=== PATIENT | female | born 1940 | race Hispanic/Latino ===

== ENCOUNTER 2017-09-27 08:10 | Outpatient (CLI) | payer MEDICARE | END 2017-09-27 08:11 | disposition home or self-care (01) | LOC: BICMAMMO 08:10 | PROVIDERS: ATTEND Obstetrics & Gynecology | DX: Z12.31 Encounter for screening mammogram for malignant neoplasm of breast (principal) | CPT/HCPCS: 77063; 77067 ==

== ENCOUNTER 2018-01-17 09:33 | Outpatient (CLI) | payer MEDICARE ==
[2018-01-17 12:22] LABS: Bilirubin Negative (Negative); Blood, Urine Negative (Negative); Clarity CLEAR (Clear); Glucose, Urine (Dipstick) Negative (Negative); Leukocyte Negative (Negative); Nitrite Negative (Negative); Protein, Urine (Dipstick) Negative (Neg-Trace); Specific Gravity, Urine 1.021 (1.002-1.036); Urobilinogen 0.2 mg/dL (0.2-1.0); pH, Urine 5.5 (5.0-9.0)
[2018-01-17 12:26] LABS: Bacteria/HPF None Seen HPF (None Seen); Hyaline Casts/LPF 0-3 HYALINE CAST LPF (0-3 Hyaline); RBC/HPF 0-3 HPF (0-3); Squamous Epithelial 0-3 HPF (0-3); WBC/HPF 0-3 HPF (0-3)
--- NOTE | 2018-01-17 12:34 | RAD ---
TWO VIEWS CHEST: Comparison: 01-18-07 History: Pre-operative radiograph. FINDINGS: Two views of the chest shows a normal sized cardiomediastinal silhouette. There are calcified granulo fung projecting over the right lower lobe. No consolidation or pleural effusion are seen. Degenerativ e changes are seen in the spine. IMPRESSION: No evidence of acute cardiopulmonary disease. POS: [facility]
== END 2018-01-17 09:34 | disposition home or self-care (01) ==
LOC: LABBT 09:33
PROVIDERS: ATTEND Orthopaedic Surgery
DX: Z01.818 Encounter for other preprocedural examination (principal); M17.11 Unilateral primary osteoarthritis, right knee
CPT/HCPCS: 71046; 81001; 87081

== ENCOUNTER 2018-01-24 08:58 | Outpatient (CLI) | payer MEDICARE ==
[2018-01-24 09:35] LABS: #Eosinphils 0.3 thou/uL (0.0-0.7); #Monocytes 0.5 thou/uL (0.11-0.59); #Neutrophils 3.7 thou/uL (1.40-6.50); %Basophils 0.4 % (0.0-1.0); %Lymphocytes 30.6 % (21.0-51.0); %Monocytes 7.7 % (0.0-10.0); %Neutrophils 56.2 % (42.0-75.0); Mean Corpuscular HGB CONC 33.3 g/dL (32.0-36.0); Mean Corpuscular Volume 92.9 fl (81.0-99.0); Mean Platelet Volume 8.7 fL (7.4-10.4); Platelet Count 187 thou/uL (130-400); RBC Distribution Width 12.8 % (11.5-14.5); Red Blood Cell (RBC) Count 4.18 mill/uL (4.20-5.40); White Blood Cell (WBC) Count 6.6 thou/uL (4.8-10.8)
[2018-01-24 09:39] LABS: INR-International Normal Ratio 1.1; Prothrombin Time 13.9 SEC (12.0-14.7)
[2018-01-24 09:57] LABS: Anion Gap 13 mmol/L (10-20); BUN (Urea Nitrogen) 24 mg/dL (9.8-20.1); Calc. Creatinine Clearance 0 mL/min (70-130); Calcium 9.3 mg/dL (7.8-10.44); Carbon Dioxide 23 mmol/L (23-31); Chloride 107 mmol/L (98-107); Estimated GFR-MDRD 82; Glucose 192 mg/dL (83-110); Potassium 4.1 mmol/L (3.5-5.1); Sodium 139 mmol/L (136-145)
== END 2018-01-24 08:59 | disposition home or self-care (01) ==
LOC: LABBT 08:58
PROVIDERS: ATTEND Orthopaedic Surgery
DX: Z01.818 Encounter for other preprocedural examination (principal); M17.11 Unilateral primary osteoarthritis, right knee
CPT/HCPCS: 80048; 85025; 85610

== ENCOUNTER 2018-01-27 12:25 | Outpatient (CLI) | payer MEDICARE | END 2018-01-27 12:26 | disposition home or self-care (01) | LOC: LABBT 12:25 | PROVIDERS: ATTEND Orthopaedic Surgery | DX: Z01.818 Encounter for other preprocedural examination (principal); M17.11 Unilateral primary osteoarthritis, right knee | CPT/HCPCS: 86850; 86900; 86901; 93005 ==

== ENCOUNTER 2018-02-01 06:21 | Inpatient (IN) | payer MEDICARE ==
[2018-02-01] MEDS ORDERED: Vancomycin HCl 1.5 GM in Sodium Chloride 0.9% 250 ML 300 ML IVPB SCH (07:00)
[2018-02-01] MEDS ORDERED: CEFAZOLIN/Water 2 GM/20 ML SYRINGE ONE (07:11)
[2018-02-01] MEDS ORDERED: Sodium Chloride 0.9% 100 ML ONE (07:11)
[2018-02-01] MEDS ORDERED: Ondansetron HCl/PF 4 MG/2 ML Vial ONE ×2 (07:24→07:57)
[2018-02-01] MEDS ORDERED: PHENYLEPHRINE-NS 100 MCG/ML 10 ML SYRINGE ONE (07:24)
[2018-02-01] MEDS ORDERED: PROPOFOL 200 MG/20 ML VIAL ONE (07:24)
[2018-02-01] MEDS ORDERED: Dexamethasone 20 MG/5 ML VIAL ONE (07:24)
[2018-02-01] MEDS ORDERED: Midazolam HCl 2 mg/2 ml Vial ONE (07:29)
[2018-02-01] MEDS ORDERED: Fentanyl 100 MCG/2 ML VIAL ONE ×2 (07:29→10:03)
[2018-02-01] MEDS ORDERED: Ondansetron HCl/PF 4 MG/2 ML Vial IVP PRN ×3 (08:30→10:05)
[2018-02-01] MEDS ORDERED: HYDROcodone/Acetaminophen 10/325 mg Tablet PO PRN ×2 (08:30)
[2018-02-01] MEDS ORDERED: Zolpidem Tartrate 5 MG TAB PO PRN (08:30)
[2018-02-01] MEDS ORDERED: Promethazine HCl 25 MG/ML VIAL IM PRN ×3 (08:30→10:05)
[2018-02-01] MEDS ORDERED: Fentanyl 100 MCG/2 ML VIAL IV PRN (08:31)
[2018-02-01] MEDS ORDERED: Acetaminophen 325 MG TAB PO PRN (08:46)
[2018-02-01] MEDS ORDERED: diphenhydrAMINE 25 MG CAP PO PRN (08:46)
[2018-02-01] MEDS ORDERED: traMADol HCl 50 MG TAB PO PRN (08:46)
[2018-02-01] MEDS ORDERED: Tranexamic Acid 1,000 MG in Sodium Chloride 0.9% 100 ML IVPB SCH ×2 (09:00→11:15)
[2018-02-01] MEDS ORDERED: Promethazine HCl 25 MG/ML VIAL SLOW IVP PRN (10:05)
--- NOTE | 2018-02-01 11:08 | OP ---
DATE OF PROCEDURE: 02/01/2018 PRECONSULTATION DIAGNOSIS: Inability to place a catheter prior to a total knee replacement. POST-PROCEDURE DIAGNOSIS: Inability to place a catheter prior to a total knee replacement. PROCEDURE: Placement of a 14 [place]er coude. SURGEON: Roopa Rock M.D. ANESTHESIA: General. COMPLICATIONS: None. INDICATIONS FOR PROCEDURE: The patient is a 77-year-old female who was getting prepped for her knee replacement with the Orthopedic Team and the preparation they were unable to place a catheter. Multiple attempts had been made and I was consulted for this. The patient was already asleep and in supine position and frog legged. At this point, I examined her, noted her urethra was recessed, but otherwise palpable with a pendulous anterior fourchette that had to be elevated in order to fully expose the anatomy. With her legs held in lithotomy, a 14 [place]er coude was then easily placed under sterile conditions for clear urine. The patient tolerated the procedure well. The rest of the procedure will be dictated by the Orthopedic team. TAD
--- NOTE | 2018-02-01 11:11 | OP ---
PREOPERATIVE DIAGNOSIS: Degenerative joint disease, right knee. POSTOPERATIVE DIAGNOSIS: Degenerative joint disease, right knee. SURGEON: Brandon Leach M.D. OPTICAL MANUFACTURING TECHNICIAN: Triston Banks PA-C. BLOOD LOSS: Minimal. SPECIMEN: None. DRAINS: None. COMPLICATIONS: None. TOURNIQUET TIME: 46 minutes. INDICATIONS: 3 femur, 2 tibia, 11 mm CS X3 polyethylene and A29 patella all from the [employer] series. PROCEDURE IN DETAIL: After informed consent was obtained in the preoperative holding area. The christiana ent was taken to the operative suite where general anesthesia was induced. Once adequate level of ge neral anesthesia was obtained, the patient was positioned and a well-padded tourniquet was placed gucci und the right proximal thigh. The right lower extremity was then prepped and draped in the usual aarti rile fashion. Prior to exsanguination, a time out was called and all members of the surgical team ag yaniv upon site, surgeon, and patient. The extremity was then exsanguinated and the tourniquet was ra ised. A midline longitudinal incision was then made directly over the patella extending two fingerbr eadths above the superior pole of the patella and two fingerbreadths inferior to the inferior patella r pole of the patella. Deeper subcutaneous layers were dissected sharply and local bleeding was cont rolled with Bovie electrocautery. A quad tendon longitudinal split was then made sharply and a media n parapatellar arthrotomy was carried out both sharp and with Bovie electrocautery, carried down to o ne fingerbreadth medial to the tibial tubercle. The knee was then placed into flexion and the patell a was everted nicely, and a copious fat pad ectomy was performed allowing for greater exposure of the tibia. The computer-assisted distal femoral fiducial was then placed and pinned firmly, and the dis heladio femoral cutting guide was pinned firmly into place. The oscillating saw was then used to remove the appropriate amount of bone. The 4-in-1 cutting block was then placed on the distal femur and the oscillating saw was used to remove the appropriate amount of bone off of the anterior, posterior, an d chamfer cuts. After completion of bone cuts, the anterior cruciate ligament was resected sharply a nd the posterior cruciate ligament retractor was placed and the tibia was subluxed for better exposur e. Partial meniscectomies were carried out, and the tibial computer-assisted fiducial was pinned, an d the cutting guide was placed. Oscillating saw was then used to remove the bone with Hohmann retrac tors used to take care and protect the collateral ligaments. After the tibial resection was performe d, a laminar filler spreader was placed in between the freshened bone cuts. The knee placed at 90 degrees a nd further bilateral meniscectomies were carried out, and the curved osteotome and curettage was used to remove any excess bone spurs in the posterior compartment. The trial femoral component, tibial b aseplate were placed with the appropriate polyethylene trial insert with an appropriate polyethylene spacer and patellar button. The knee was taken through full range of motion with flexion and extensi on from 0-90 degrees and patellar broach squarely in the trochlea without any squinting or subluxatio n noted. The knee was also stable to varus and valgus stressing at 0, 15, 45, and 90 degrees of flex ion. The drawer was negative. All trial components were then removed and the keel punch was used to provide the appropriate defect in the tibia with a mallet. The freshened bone cuts were copiously ir rigated with pulsatile lavage of about 1-1/2 liters to remove all excess debris. The freshened bone cuts were then dried and with suction and lap sponge. The knee was placed in flexion and retractors were placed to provide access to all bone cuts. Tobramycin impregnated methyl methacrylate cement wa s then placed on the freshened bone cuts and implants which were malleted firmly into place. Curetta ge and [place] elevators were used to remove any excess bone cement. The knee was placed into full ext ension and the patellar button was placed under compression, and the cement was allowed to cure. Onc e completed, the components were again taken through full range of motion and copious irrigation of t he knee was carried out with another liter of normal saline. All components were inspected fully wit h full range of motion and varus and valgus stressing. There was no laxity noted and full extension w as observed clinically. Primary closure was accomplished with #2 interrupted Vicryl stitch of the ar throtomy defect. This was oversewn with a #2 running Quill barbed stitch. The gravitational platele t system was then injected into the arthrotomy prior to closure. The subcutaneous layer was then lina sed with a running 0 barbed Monocryl stitch and skin closure accomplished with a running subcuticular 3-0 Monocryl barbed Quill stitch and augmented with cement on the skin. Tourniquet was lowered. Go od spontaneous return of distal pulses was noted clinically and a sterile dressing was applied to the incision. The procedure was terminated without any complications. The patient was awakened in the operative suite and the tourniquet was removed, and the patient was taken to the recovery room in sta ble condition.
[2018-02-01] MEDS ORDERED: Promethazine HCl 25 MG/ML VIAL ONE (11:24)
--- NOTE | 2018-02-01 11:56 | RAD ---
TWO VIEWS RIGHT KNEE: HISTORY: Status post arthroplasty. COMPARISON: None. FINDINGS: Findings compatible with recent arthroplasty. No joint effusion. No fracture or malalignment. IMPRESSION: Post arthroplasty change. POS: [facility]
[2018-02-01] MEDS ORDERED: Dextrose 5% in Water 1,000 ML IV PRN (14:14)
[2018-02-01] MEDS ORDERED: Dextrose 50% Abboject 50 ML SYRINGE SLOW IVP PRN (14:14)
[2018-02-01] MEDS ORDERED: CEFAZOLIN/Water 2 GM/20 ML SYRINGE SLOW IVP SCH (15:00)
[2018-02-01] MEDS ORDERED: Ropivacaine 0.5% HCl/PF (150 MG/30 ML VIAL) ONE (15:27)
[2018-02-01] MEDS ORDERED: Ropivacaine 0.2% HCl/PF (40 MG/20 ML VIAL) ONE (15:27)
[2018-02-01] MEDS ORDERED: Bupivacaine 0.25% HCL 30 ML VIAL ONE (15:27)
[2018-02-01] MEDS: Aspirin 81 mg Enteric Coated Tablet PO SCH ×2 (16:10→21:10)
[2018-02-01 16:38] VITALS: BMI 48.2
--- NOTE | 2018-02-01 21:05 | HP ---
DATE OF SERVICE: 02/01/2018 HISTORY OF PRESENT ILLNESS: This is a 77-year-old [place] female, who is postop day #0 status post right total knee replacement by Dr. Leach this morning. The patient did very well during the surgery. A minor complication was with the difficulty of placing a Castellano catheter. Due to her prola pse bladder, a Coude was placed by Dr. Rock. The patient did well following this. At this time, s he has no complaints whatsoever. PAST MEDICAL HISTORY: Hypertension, hyperlipidemia, diabetes, obesity, polycystic ovarian syndrome, chronic low back pain, endometriosis, diverticulosis, allergic rhinitis, depression, and cataracts. PAST SURGICAL HISTORY: Include, 1. Colonoscopy. 2. Right medial and lateral meniscal repair in 2006. 3. Left medial meniscal repair in 09/2016 2. Cataract surgery in 02/2017. FAMILY HISTORY: Unremarkable. SOCIAL HISTORY: Patient is . She has 2 children, one boy and one daughter with multiple gran dchildren. She is a retired finance administrative receptionist. She does not smoke, does not drink. MEDICATIONS: Aspirin 81 mg q. day, metformin 500 two p.o. b.i.d., Losartan 50 p.o. q. day, Zoloft 25 p.o. q. day, Actos 15 mg q. day, glimepiride 2 mg b.i.d., and pravastatin 20 q. day. ALLERGIES: BACTRIM, BIAXIN, CLINDAMYCIN, SULFA, and TRAMADOL. REVIEW OF SYSTEMS: As above. PHYSICAL EXAMINATION: VITAL SIGNS: Stable, afebrile. HEENT: Clear. HEART: Regular rate and rhythm. LUNGS: Clear. ABDOMEN: Soft. EXTREMITIES: With no edema. LABORATORY DATA: H&H 13 and 38. Electrolytes normal. Creatinine 0.70, BUN 24, blood sugar 138. Li lynsey functions normal. ASSESSMENT: 1. Postop day #0, status post right total knee replacement by Dr. Leach. 2. Placement of a 14-[place] [address] Dr. Rock. 3. Hypertension. 4. Hyperlipidemia. 5. Diabetes. 6. Morbid obesity. 7. Polycystic ovarian syndrome. PLAN: 1. Accu-Chek and moderate sliding scale of regular insulin. 2. Resume losartan 50, Zoloft 50, and pravastatin 20 today. 3. Resume metformin 500 two b.i.d., Actos 15 q. day, and glimepiride 2 mg p.o. b.i.d. tomorrow. 4. We will continue to follow. 5. Routine postop physical therapy.
[2018-02-01] MEDS: Simvastatin 5 MG TAB PO SCH (21:10)
[2018-02-01] MEDS: Insulin Regular 300 UNITS/3 ML VIAL SC PRN (21:14)
[2018-02-01] MEDS: Zolpidem Tartrate 5 MG TAB PO PRN (22:34)
[2018-02-01] MEDS: Bupivacaine 0.5% 50 ML in Sodium Chloride 0.9% 50 ML NERVE BLCK SCH (23:52)
[2018-02-02] MEDS ORDERED: CEFAZOLIN/Water 2 GM/20 ML SYRINGE SLOW IVP SCH (04:00)
[2018-02-02] MEDS: Insulin Regular 300 UNITS/3 ML VIAL SC PRN ×2 (06:11→12:51)
--- NOTE | 2018-02-02 08:03 | PRG ---
DATE OF SERVICE: 02/02/2018 SUBJECTIVE: The patient is doing well this morning. Last night she had an episode of panic. She wa s unable to figure out her call buttons. She therefore had to yell for help. She was given some almita n medicines which helped her, however, it made her nauseated and she had some episodes of vomiting. This morning she is doing much better. She is now familiar with her bed controls. She does not comp roderick of any chest pain, shortness of breath, nausea or vomiting. OBJECTIVE: VITAL SIGNS: Temperature 98.2, pulse 73, respirations 18, pulse ox 99, blood pressure 115/68. HEART: Regular rate and rhythm. LUNGS: Clear. ABDOMEN: Soft. EXTREMITIES: With no edema. LABORATORY: Blood sugar 221, 276, 174. Hemogram pending this morning. ASSESSMENT: 1. Postop day #1, status post right total knee replacement, doing well. 2. Hypertension. 3. Hyperlipidemia. 4. Diabetes. 5. Morbid obesity. 6. PCOS. PLAN: 1. Resume patient's metformin, glyburide and Actos. 2. From an anxiety standpoint, the patient is doing well at this time. She is familiar with her bed controls. No evidence of cardiac issues, PE issues or other issues. We will continue to follow.
[2018-02-02] MEDS: Ferrous Gluconate 324 MG TAB PO SCH ×2 (08:16→18:32)
[2018-02-02] MEDS: Senokot S 8.6-50 MG TAB PO SCH ×2 (08:16→20:36)
[2018-02-02] MEDS: Losartan 25 MG TAB PO SCH (08:16)
[2018-02-02] MEDS: metFORMIN 500 MG TAB PO SCH ×2 (08:16→18:32)
[2018-02-02] MEDS: Multivitamin W/ Minerals 1 TAB PO SCH (08:17)
[2018-02-02] MEDS: Pioglitazone HCl 15 MG TAB PO SCH (08:17)
[2018-02-02] MEDS: Aspirin 81 mg Enteric Coated Tablet PO SCH ×2 (08:17→20:35)
[2018-02-02 08:39] LABS: Hemoglobin 11.9 g/dL (12.0-16.0); Mean Corpuscular HGB CONC 33.4 g/dL (32.0-36.0); Mean Corpuscular Volume 92.9 fl (81.0-99.0); Mean Platelet Volume 8.1 fL (7.4-10.4); Platelet Count 165 thou/uL (130-400); RBC Distribution Width 12.8 % (11.5-14.5); Red Blood Cell (RBC) Count 3.82 mill/uL (4.20-5.40); White Blood Cell (WBC) Count 11.5 thou/uL (4.8-10.8)
[2018-02-02] MEDS: Ketorolac Tromethamine 30 MG/ML VIAL IVP PRN ×2 (11:18→18:31)
[2018-02-02] MEDS: Bupivacaine 0.5% 50 ML in Sodium Chloride 0.9% 50 ML NERVE BLCK SCH (12:54)
[2018-02-02] MEDS: Glimepiride 2 MG TAB PO SCH (17:59)
[2018-02-02] MEDS: Simvastatin 5 MG TAB PO SCH (20:35)
[2018-02-03] MEDS: Zolpidem Tartrate 5 MG TAB PO PRN (00:20)
[2018-02-03 04:45] VITALS: TEMP 99
[2018-02-03 05:45] LABS: Mean Corpuscular HGB CONC 33.9 g/dL (32.0-36.0); Mean Corpuscular Hemoglobin 31.3 pg (27.0-31.0); Mean Corpuscular Volume 92.4 fl (81.0-99.0); Mean Platelet Volume 8.5 fL (7.4-10.4); Platelet Count 163 thou/uL (130-400); Red Blood Cell (RBC) Count 3.83 mill/uL (4.20-5.40); White Blood Cell (WBC) Count 11.5 thou/uL (4.8-10.8)
[2018-02-03] MEDS: Insulin Regular 300 UNITS/3 ML VIAL SC PRN (07:25)
[2018-02-03] MEDS: Senokot S 8.6-50 MG TAB PO SCH (07:52)
[2018-02-03] MEDS: Ferrous Gluconate 324 MG TAB PO SCH (07:54)
[2018-02-03] MEDS: Losartan 25 MG TAB PO SCH (07:54)
[2018-02-03] MEDS: metFORMIN 500 MG TAB PO SCH (07:54)
[2018-02-03] MEDS: Multivitamin W/ Minerals 1 TAB PO SCH (07:55)
[2018-02-03] MEDS: Aspirin 81 mg Enteric Coated Tablet PO SCH (07:55)
[2018-02-03] MEDS: Pioglitazone HCl 15 MG TAB PO SCH (07:55)
[2018-02-03] MEDS: Glimepiride 2 MG TAB PO SCH (07:56)
--- NOTE | 2018-02-03 08:07 | PRG ---
DATE OF SERVICE: 02/03/2018 SUBJECTIVE: The patient is doing very well. She had a decent night last night. She is ready for di [facility]. OBJECTIVE: VITAL SIGNS: Temperature 99.0, pulse 79, respirations 16, pulse ox 92, blood pressure 129/65. HEART: Regular rate and rhythm. LUNGS: Clear. ABDOMEN: Soft. EXTREMITIES: No edema. LABORATORY: Blood sugar 184, 172. White count 11.5, H&H 12 and 35. ASSESSMENT: 1. Postop day #2 status post total right knee replacement. 2. Hypertension. 3. Hyperlipidemia. 4. Diabetes. 5. Morbid obesity. 6. PCOS. PLAN: 1. The patient is to be discharged today. 2. Follow up 1 week. 3. Resume all home medications.
[2018-02-03 08:29] VITALS: BP 165/71
== END 2018-02-03 12:00 | disposition home or self-care (01) | DRG 470 ==
LOC: SDC 06:21 → SJJU 12:35
PROVIDERS: ADMIT Orthopaedic Surgery; ATTEND Orthopaedic Surgery
PROC: 0SRC0J9 Replacement of Right Knee Joint with Synthetic Substitute, Cemented, Open Approach (ICD-10-PCS; principal; 2018-02-01)
DX: M17.11 Unilateral primary osteoarthritis, right knee (principal); Z68.42 Body mass index [BMI] 45.0-49.9, adult; E66.01 Morbid (severe) obesity due to excess calories; E78.5 Hyperlipidemia, unspecified; E11.9 Type 2 diabetes mellitus without complications; I10 Essential (primary) hypertension; M54.5 Low back pain; J30.9 Allergic rhinitis, unspecified; F32.9 Major depressive disorder, single episode, unspecified; Z79.899 Other long term (current) drug therapy; Z79.82 Long term (current) use of aspirin; Z79.84 Long term (current) use of oral hypoglycemic drugs; Z88.2 Allergy status to sulfonamides; Z88.1 Allergy status to other antibiotic agents; Z88.8 Allergy status to other drugs, medicaments and biological substances; E28.2 Polycystic ovarian syndrome
CPT/HCPCS: 36415; 36416; 85027; 96374; A4216; C1713; C1776; G8978-GP-CM; G8979-GP-CJ; J1100; J1815; J1885; J2250; J2405; J2550; J2704; J2795; J3010; J3370; J3490; J7050; S0020

== ENCOUNTER 2018-11-22 08:14 | Outpatient (CLI) | payer MEDICARE ==
--- NOTE | 2018-11-23 15:32 | MMO ---
Bilateral MAMMO Bilat Screen [facility]. CLINICAL HISTORY: Patient is 77 years old and is seen for screening. The patient has no family history of breast cancer. The patient has no personal history of cancer. VIEWS: The views performed were: bilateral craniocaudal with tomosynthesis and bilateral mediolateral oblique with tomosynthesis. FILMS COMPARED: The present examination has been compared to prior imaging studies performed at [facility] on 05/01/1999, 11/07/1999, 12/31/2000, 06/29/2002, 06/25/2003, 07/03/2004, 07/08/2005, 07/08/2006, 07/21/2007, 07/24/2009, 07/25/2010, 07/28/2012, 08/17/2015, 08/18/2016 and 09/27/2017. MAMMOGRAM FINDINGS: There are scattered fibroglandular densities. Benign calcifications are noted bilaterally. There are no suspicious masses, calcifications or areas of architectural distortion. IMPRESSION: FINDINGS IN BOTH BREASTS ARE BENIGN. A ROUTINE FOLLOW-UP MAMMOGRAM IN 1 YEAR IS RECOMMENDED. THE RESULTS OF THIS EXAM WERE SENT TO THE PATIENT. ACR BI-RADS Category 2 - Benign finding MAMMOGRAPHY NOTE: 1. A negative mammogram report should not delay a biopsy if a dominant of clinically suspicious mass is present. 2. Approximately 10% to 15% of breast cancers are not detected by mammography. 3. Adenosis and dense breasts may obscure an underlying neoplasm.
== END 2018-11-22 08:15 | disposition home or self-care (01) ==
LOC: BICMAMMO 08:14
PROVIDERS: ATTEND Obstetrics & Gynecology
DX: Z12.31 Encounter for screening mammogram for malignant neoplasm of breast (principal)
CPT/HCPCS: 77063; 77067

== ENCOUNTER 2019-08-21 11:03 | Outpatient (CLI) | payer MEDICARE, OTHER ==
--- NOTE | 2019-08-21 11:31 | RAD ---
XR Wrist 3 Lt View STANDARD History: Wrist pain Comparison: Wrist radiograph 2009 Findings: Mild narrowing of the radial scaphoid interval. No acute fracture or malalignment. Mild deg enerative change distal radioulnar joint. Impression: No acute fracture of the wrist. Mild narrowing of the radial scaphoid joint.
== END 2019-08-21 11:04 | disposition home or self-care (01) ==
LOC: BICRAD 11:03
PROVIDERS: ATTEND Family Medicine
DX: M25.532 Pain in left wrist (principal); M25.832 Other specified joint disorders, left wrist

== ENCOUNTER 2019-11-27 08:59 | Outpatient (CLI) | payer MEDICARE, OTHER ==
--- NOTE | 2019-11-27 09:40 | BD ---
EXAM: Bone densitometry using DEXA HISTORY: 78 yo female. Screening for postmenopausal osteoporosis. Asymptomatic menopausal state FINDINGS: L1--bone mineral density 1.016 g/sq cm; T score 0.2 ; Z score 2.5 L2--bone mineral density 0.928 g/sq cm; T score -0.9 ; Z score 1.6 L3--bone mineral density 1.034 g/sq cm; T score -0.5 ; Z score 2.2 L4--bone mineral density 1.057 g/sq cm; T score 0.0 ; Z score 2.6 Total L1-L4--bone mineral density 1.011 g/sq cm; T score -0.3 ; Z score 2.6 Left femoral neck--bone mineral density0.761; T score -0.8 ; Z score 1.2 Total proximal left femur--bone mineral density 0.981; T score 0.3 ; Z score 2.0 IMPRESSION: Normal BMD
--- NOTE | 2019-11-27 10:22 | MMO ---
Bilateral MAMMO Bilat Screen [facility]. CLINICAL HISTORY: Patient is 78 years old and is seen for screening. The patient has no family history of breast cancer. The patient has no personal history of cancer. VIEWS: The views performed were: bilateral craniocaudal with tomosynthesis and bilateral mediolateral oblique with tomosynthesis. FILMS COMPARED: The present examination has been compared to prior imaging studies performed at [facility] on 08/18/2016, 09/27/2017 and 11/22/2018. This study has been interpreted with the assistance of computer-aided detection. MAMMOGRAM FINDINGS: There are scattered fibroglandular densities. There are stable benign appearing calcifications seen in both breasts. There are no suspicious masses, suspicious calcifications, or new areas of architectural distortion. IMPRESSION: THERE IS NO MAMMOGRAPHIC EVIDENCE OF MALIGNANCY. A ROUTINE FOLLOW-UP MAMMOGRAM IN 1 YEAR IS RECOMMENDED. THE RESULTS OF THIS EXAM WERE SENT TO THE PATIENT. ACR BI-RADS Category 2 - Benign finding MAMMOGRAPHY NOTE: 1. A negative mammogram report should not delay a biopsy if a dominant of clinically suspicious mass is present. 2. Approximately 10% to 15% of breast cancers are not detected by mammography. 3. Adenosis and dense breasts may obscure an underlying neoplasm. Reported by: BARBARA CHIU MD Electonically Signed: [id number]
== END 2019-11-27 09:00 | disposition home or self-care (01) ==
LOC: BICMAMMO 08:59
PROVIDERS: ATTEND Obstetrics & Gynecology
DX: Z12.31 Encounter for screening mammogram for malignant neoplasm of breast (principal); Z13.820 Encounter for screening for osteoporosis; Z78.0 Asymptomatic menopausal state
CPT/HCPCS: 77063; 77067; 77080

== ENCOUNTER 2021-10-01 17:30 | Outpatient (CLI) | payer MEDICARE | END 2021-10-01 17:31 | disposition home or self-care (01) | LOC: SLEEPLAB 17:30 | PROVIDERS: ATTEND Family Medicine | DX: G47.10 Hypersomnia, unspecified (principal); G47.33 Obstructive sleep apnea (adult) (pediatric); F51.9 Sleep disorder not due to a substance or known physiological condition, unspecified; R53.83 Other fatigue; K21.9 Gastro-esophageal reflux disease without esophagitis; R06.83 Snoring; F41.9 Anxiety disorder, unspecified; E11.9 Type 2 diabetes mellitus without complications; G47.00 Insomnia, unspecified; I10 Essential (primary) hypertension; E66.9 Obesity, unspecified; Z68.41 Body mass index [BMI] 40.0-44.9, adult | CPT/HCPCS: 95806 ==

== ENCOUNTER 2022-01-13 06:50 | Outpatient (CLI) | payer MEDICARE | END 2022-01-13 06:51 | disposition home or self-care (01) | LOC: BICULT 06:50 | PROVIDERS: ATTEND Internal Medicine Gastroenterology | DX: R19.7 Diarrhea, unspecified (principal); Z86.010 Personal history of colon polyps; E11.9 Type 2 diabetes mellitus without complications; E66.9 Obesity, unspecified | CPT/HCPCS: 76705 ==

== ENCOUNTER 2022-03-03 10:02 | Outpatient (CLI) | payer MEDICARE | END 2022-03-03 10:03 | disposition home or self-care (01) | LOC: DTY/OP 10:02 | PROVIDERS: ATTEND Family Medicine | DX: E66.01 Morbid (severe) obesity due to excess calories (principal); E11.9 Type 2 diabetes mellitus without complications; Z71.3 Dietary counseling and surveillance | CPT/HCPCS: 97802 ==

== ENCOUNTER 2023-05-28 08:22 | Outpatient (CLI) | payer MEDICARE, OTHER | END 2023-05-28 08:23 | disposition home or self-care (01) | LOC: BICMAMMO 08:22 | PROVIDERS: ATTEND Family Medicine | DX: Z12.31 Encounter for screening mammogram for malignant neoplasm of breast (principal) | CPT/HCPCS: 77063; 77067 ==

== ENCOUNTER 2023-06-14 09:21 | Emergency (ER) | payer MEDICARE, OTHER ==
[2023-06-14 10:03] LABS: #Eosinphils 0.3 thou/uL (0.0-0.7); #Monocytes 0.6 thou/uL (0.11-0.59); #Neutrophils 3.3 thou/uL (1.40-6.50); %Basophils 0.6 % (0.0-1.0); %Eosinophils 4.7 % (0.0-10.0); %Lymphocytes 32.9 % (21.0-51.0); %Monocytes 9.3 % (0.0-10.0); %Neutrophils 52.2 % (42.0-75.0); Hematocrit 36.8 % (36.0-47.0); Hemoglobin 11.9 g/dL (12.0-16.0); Mean Corpuscular HGB CONC 32.3 g/dL (32.0-36.0); Mean Corpuscular Hemoglobin 31.6 pg (27.0-31.0); Mean Corpuscular Volume 97.6 fl (78.0-98.0); Mean Platelet Volume 11.9 fL (7.4-10.4); Platelet Count 166 10x3/uL (130-400); Red Blood Cell (RBC) Count 3.77 mill/uL (4.20-5.40); White Blood Cell (WBC) Count 6.3 10x3/uL (4.8-10.8)
[2023-06-14 10:30] LABS: Troponin I Less than 0.010 ng/mL (< 0.028)
[2023-06-14 10:33] LABS: ALT (SGPT) 15 U/L (8-55); AST (SGOT) 21 U/L (5-34); Albumin 3.8 g/dL (3.4-4.8); Alkaline Phosphatase 61 U/L (40-110); Anion Gap 13 mmol/L (10-20); BUN (Urea Nitrogen) 32 mg/dL (9.8-20.1); Bilirubin, Total Less than 1.0 mg/dL (0.2-1.2); Calc. Creatinine Clearance 0 mL/min (70-130); Calcium 9.7 mg/dL (7.8-10.44); Carbon Dioxide 21 mmol/L (23-31); Chloride 109 mmol/L (98-107); Estimated GFR 55; Globulin 3.1 g/dL (2.4-3.5); Glucose 133 mg/dL (83-110); Lipase 48 U/L (8-78); Potassium 4.6 mmol/L (3.5-5.1); Protein, Total 6.9 g/dL (5.8-8.1); Sodium 138 mmol/L (136-145)
== END 2023-06-14 12:53 | disposition home or self-care (01) ==
LOC: ERS 09:21
DX: R00.2 Palpitations (principal); E11.9 Type 2 diabetes mellitus without complications; E78.5 Hyperlipidemia, unspecified; I10 Essential (primary) hypertension; Z79.84 Long term (current) use of oral hypoglycemic drugs; Z79.899 Other long term (current) drug therapy
CPT/HCPCS: 36415; 70450; 71045; 80053; 83690; 84484; 85025; 93005

== ENCOUNTER 2024-01-18 12:40 | Outpatient (CLI) | payer MEDICARE, OTHER | END 2024-01-18 12:41 | disposition home or self-care (01) | LOC: EEG 12:40 | PROVIDERS: ATTEND Psychiatry & Neurology Neurology | DX: R44.3 Hallucinations, unspecified (principal) | CPT/HCPCS: 95816 ==

== ENCOUNTER 2024-07-05 11:45 | Outpatient (CLI) | payer MEDICARE, OTHER | END 2024-07-05 11:46 | disposition home or self-care (01) | LOC: PET 11:45 | PROVIDERS: ATTEND Psychiatry & Neurology Neurology | DX: R41.3 Other amnesia (principal) | CPT/HCPCS: 78803; A9552 ==